=== PATIENT | female | born 2000 | race African-American/Black ===

== ENCOUNTER 2022-01-28 00:11 | Emergency (ER) | payer MEDICAID, SELFPAY ==
[2022-01-28 00:13] VITALS: BP 137/64; PULSE 106; RESP 18; TEMP 36.4; O2SAT 100
[2022-01-28 01:51] LABS: Appearance Urine Clear (Clear); Bilirubin Urine 1+ (Negative); Blood Urine Negative (Negative); Color Urine Yellow (Yellow); Glucose Urine UA Negative (Negative); Ketones Urine Trace mg/dL (Negative); Leukocyte Esterase Ur Negative LEU/UL (Negative); Nitrate Urine Negative (Negative); Protein Urine 1+ mg/dL (Negative); pH Urine 7.5 (5.0-9.0)
[2022-01-28 01:53] LABS: Mucus Urine Rare /lpf; Squamous Epithelial Cell Urine Many /hpf (Few); WBC Urine 0-3 /hpf
[2022-01-28 01:54] LABS: Add Urine Microscopic? YES
--- NOTE | 2022-01-28 02:05 | ED.GENADULT ---
HPI - General Adult General Chief complaint: Unspecified <EDITH Wylie Last Filed: 01/28/22 03:08> Stated complaint: BACK PAIN <EDITH Wylie Last Filed: 01/28/22 03:08> Time Seen by Provider: 01/28/22 01:50 <EDITH Wylie Last Filed: 01/28/22 03:08> Source: patient <EDITH Wylie Last Filed: 01/28/22 03:08> Mode of arrival: ambulatory <EDITH Wylie Last Filed: 01/28/22 03:08> Limitations: no limitations <EDITH Wylie Last Filed: 01/28/22 03:08> History of Present Illness HPI narrative: This is a 21 year old female that presents to the ER for low back pain ongoing over the last couple of hours. No known injury or trauma. The pain is worse with movement and relieved with rest. She has not taken anything for pain. She bent forward while on the toilet tonight and the pain worsened which prompted her to be seen. Denies fever, abdominal pain, vomiting, dysuria or hematuria. <EDITH Wylie Last Filed: 01/28/22 03:08> Related Data Allergies/adverse reactions: Allergies Allergy/AdvReac Type Severity Reaction Status Date / Time No Known Allergies Allergy Verified 01/28/22 02:05 <EDITH Wylie Last Filed: 01/28/22 03:08> Review of Systems Review of Systems: CONSTITUTIONAL: Denies fever EYES: Denies visual changes ENT: Denies congestion, sore throat CARDIOVASCULAR: Denies edema. RESPIRATORY: Denies dyspnea. GASTROINTESTINAL: Denies abdominal pain, nausea, vomiting GENITOURINARY: Denies dysuria or hematuria. SKIN: Denies rash MUSCULOSKELETAL: Reports back pain, joint pain, and myalgia. NEUROLOGIC: Denies numbness, or weakness. <EDITH Wylie Last Filed: 01/28/22 03:08> All systems reviewed & are unremarkable except as noted in HPI and below <Yuliana Sauceda PA-C - Last Filed: 01/28/22 03:08> [facility] Past Medical History Medical History: Medical History (Updated 01/29/22 @ 00:00 by Lavon [place]) No active medical problems <Yuliana Sauceda PA-C - Last Filed: 01/28/22 03:08> Social History Social History: Social History (Updated 01/28/22 @ 02:08 by Yuliana Sauceda PA-C) Smoking status: Never smoker Substance use: never <Yuliana Sauceda PA-C - Last Filed: 01/28/22 03:08> Exam Narrative: GENERAL: Well-appearing, well-nourished, and in no acute distress. HEAD: Normocephalic, atraumatic. EYES: EOMI. CHEST: Clear to auscultation. No respiratory distress. No wheezes rales or rhonchi HEART: Regular rate and rhythm. No murmur heard. Normal peripheral pulses. EXTREMITIES: Normal range of motion. No edema. Strength equal in bilateral lower extremities (5/5). Normal DP pulses. Normal sensation SKIN: Warm, dry, no rash. NEURO: No focal deficits. Alert and oriented x3. Normal gait PSYCH: Normal mood and affect <Yuliana Sauceda PA-C - Last Filed: 01/28/22 03:08> Course Course Emergency Course: Patient resting comfortably after Tylenol <Yuliana Sauceda PA-C - Last Filed: 01/28/22 03:08> [employer]/PA Physician Supervision For this encounter, I have reviewed the mid-level provider documentation, treatment plan and medical decision making. I have had cyst-bm-dqih time with the patient. Physical exam revealed a well-appearing young female. She has no red flags for serious back pain on history or physical. Patient was treated symptomatically with improvement of her symptoms. . All questions answered. Patient in agreement w/ disposition. Given primary care follow-up. <Jose Elias Benavidez MD - Last Filed: 02/01/22 21:31> Vital Signs Vital signs: Vital Signs Temperature 97.6 F 01/28/22 00:13 Pulse Rate 106 H 01/28/22 00:13 Respiratory Rate 18 01/28/22 00:13 Blood Pressure 137/64 01/28/22 00:13 Pulse Oximetry 100 01/28/22 00:13 Oxygen Delivery Room Air 01/28/22 00:13 Temperature 97.6 F 01/28/22 00:13 Pulse Rate 106 H
[2022-01-28] MEDS: ACETAMINOPHEN 500 MG TABLET 1000 MG PO (02:06)
[2022-01-28 02:12] LABS: Pregnancy On Board Control Positive; Urine Pregnancy Test Negative
--- NOTE | 2022-01-28 02:16 | PC.NURSE ---
in room to give IM injection and pt decided she did not want shot because she does not like shots
[2022-01-28 02:17] LABS: Basophils Absolute Auto 0.1 K/mm3 (0.0-0.1); Basophils Percent Auto 0.5 % (0.2-1.2); Eosinophils Absolute Auto 0.1 K/mm3 (0-0.3); Eosinophils Percent Auto 0.8 % (0-4.4); Hematocrit 39.3 % (37.0-47.0); Immature Granulocyte Absolute 0.03 K/mm3 (0.00-0.031); Immature Granulocyte Percent A 0.3 % (0-0.5); Lymphocytes Absolute Auto 5.83 K/mm3 (0.9-3.2); Lymphocytes Percent Auto 53.1 % (18.3-44.2); Mean Corpuscular HGB Conc 33.1 g/dl (32-36); Mean Corpuscular Volume 87.5 fl (80-100); Mean Platelet Volume 9.4 fl (7.4-10.4); Monocytes Absolute Auto 0.9 K/mm3 (0.1-0.6); Neutrophils Absolute Auto 4.1 K/mm3 (1.3-6.7); Neutrophils Percent Auto 37.3 % (45.5-73.1); Platelet Count Result 399 k/mm3 (150-375); Red Blood Count 4.49 M/mm3 (4.2-5.4)
--- NOTE | 2022-01-28 02:17 | PC.NURSE ---
urine sent to lab before bedside preg done, urine HCG ordered
[2022-01-28 02:24] LABS: Atypical Lymphocytes Present; Platelet Estimate Adequate (Adequate); Schistocytes None Seen (NORMAL)
[2022-01-28 02:41] LABS: Anion Gap 6 mmol/L (8-16); Blood Urea Nitrogen 12 mg/dL (8-21); Calcium 8.6 mg/dL (8.9-10.7); Carbon Dioxide 26 mmol/L (22-30); Chloride 104 mmol/L (98-107); Estimated CRCL calculation 100 ml/min; Estimated Glomerular Filt Rate > 60; Glucose 90 mg/dL (65-110); Sodium 136 mmol/L (134-143)
--- NOTE | 2022-01-28 03:58 | PC.NURSE ---
Engine Boss discharged papers reviewed with patient, patient denies any questions or comments. Patient alert and ambulatory to ED exit.
== END 2022-01-28 03:59 | disposition home or self-care (01) ==
PROVIDERS: Physician Assistant; Emergency Provider Emergency Medicine
DX: M54.50 Low back pain, unspecified (principal)
CPT/HCPCS: 36415; 80048; 81001; 81025; 85025; 99283; A9270

== ENCOUNTER 2023-01-01 14:24 | Emergency (ER) | payer MEDICAID, SELFPAY ==
[2023-01-01 14:26] VITALS: BP 118/58; PULSE 100; RESP 20; TEMP 36.9; O2SAT 99
--- NOTE | 2023-01-01 15:11 | ED.WOUNDLAC ---
HPI - Wound/Laceration General Chief Complaint: Wound/Laceration Stated Complaint: bleeding from wound Time Seen by Provider: 01/01/23 14:40 History of Present Illness HPI narrative: Patient is a 22-year-old female who presents ER with for evaluation of a old pilonidal cyst wound. She had the cyst removed in March 2022 at [facility]. She had prolonged healing time. Last visit was in November of this year. She been doing well. She notes bloody drainage over the last couple of days. No fevers or chills or sweats. No increased pain. No known trauma. Related Data Allergies Allergy/AdvReac Type Severity Reaction Status Date / Time No Known Allergies Allergy Verified 01/01/23 14:29 Review of Systems Constitutional: Constitutional: Denies chills and Denies fever(s) Integumentary/Breasts: Skin/Breast: Denies erythema, Denies rash and Denies skin ulcer Comments: Drainage from buttock wound. PMFSH Past Medical History Medical History (Updated 01/01/23 @ 15:20 by Doc Pennington MD) No active medical problems Surgical History Surgical History (Updated 01/01/23 @ 15:18 by Doc Pennington MD) History of excision of pilonidal cyst Social History Social History (Updated 01/28/22 @ 02:08 by Yuliana Sauceda PA-C) Smoking status: Never smoker Substance use: never Exam Narrative: GENERAL: Well-appearing, well-nourished, and in no acute distress. HEAD: Normocephalic, atraumatic. EXTREMITIES: Normal range of motion. No edema. SKIN: Warm, dry, no rash. 2 mm hole in old pilonidal cyst wound without purulent drainage. NEURO: No focal deficits. Alert and oriented x3. PSYCH: Normal mood and affect. Course Vital Signs Vital signs: Vital Signs Temperature 98.5 F 01/01/23 14:26 Pulse Rate 100 01/01/23 14:26 Respiratory Rate 20 01/01/23 14:26 Blood Pressure 118/58 L 01/01/23 14:26 Pulse Oximetry 99 01/01/23 14:26 Oxygen Delivery Room Air 01/01/23 14:26 Temperature 98.5 F 01/01/23 14:26 Pulse Rate 100 11/12/23 14:26 Respiratory Rate 20 01/01/23 14:26 Blood Pressure 118/58 L 01/01/23 14:26 Pulse Oximetry 99 01/01/23 14:26 Oxygen Delivery Room Air 01/01/23 14:26 Discharge Plan Discharge Clinical Impression: Wound dehiscence Patient Disposition: Home, Self-Care Condition: Stable Instructions: Chronic Wounds (ED) Additional Instructions: Follow-up with your general surgeon about fixing the rest of his chronic wound. Return the ER if you have any pain, you have fever over 100.4 ?F, you have additional concerns. Prescriptions: No Action cyclobenzaprine 10 mg tablet 10 mg PO TID PRN (Reason: muscle spasm) Qty: 14 0RF Follow-up/Referrals: PHYSICIAN NOT ON STAFF,NONSTAFF [Primary Care Provider] -
[2023-01-01 15:37] VITALS: BP 120/80; PULSE 98; RESP 18; TEMP 36.7; O2SAT 100
== END 2023-01-01 15:39 | disposition home or self-care (01) ==
PROVIDERS: Emergency Provider Emergency Medicine
DX: T81.31XA Disruption of external operation (surgical) wound, not elsewhere classified, initial encounter (principal); Y84.8 Other medical procedures as the cause of abnormal reaction of the patient, or of later complication, without mention of misadventure at the time of the procedure
CPT/HCPCS: 99281

== ENCOUNTER 2023-05-15 23:18 | Emergency (ER) | payer MEDICAID, SELFPAY ==
[2023-05-15 23:20] VITALS: BP 121/74; PULSE 102; RESP 20; TEMP 36.4; O2SAT 100
--- NOTE | 2023-05-16 02:20 | ED.EYEPROB ---
HPI - Eye Problem General Chief complaint: Eye Problems Stated complaint: eye complaint Time Seen by Provider: 05/16/23 02:12 History of Present Illness HPI Narrative: Patient is a 22-year-old female who presents to the emergency department this morning complaining of bilateral eye pain. Patient states that Monday of last week she went to an urgent care for these symptoms after using a new eye lash clue. She was informed that she has allergic conjunctivitis and provided with an antihistamine eyedrops which patient has been using. Patient admits that her symptoms have not gotten worse but they also have not gotten better. This morning she woke up and noted yellow crusting around both eyes and is now concerned that her conjunctivitis has turn into a bacterial conjunctivitis due to her rubbing her eyes frequently due to itching sensation. Patient wears glasses but denies any recent contact lens use. She is currently denying any additional symptoms at this time. There are no other modifying, alleviating, or precipitating factors. Related Data Allergies Allergy/AdvReac Type Severity Reaction Status Date / Time No Known Allergies Allergy Verified 01/01/23 14:29 Review of Systems Review of Systems: All systems are reviewed and are negative unless stated otherwise in the HPI. [facility] Past Medical History Medical History No active medical problems Surgical History Surgical History History of excision of pilonidal cyst Social History Social History Smoking status: Never smoker Substance use: never Exam Narrative: General: Alert, awake, afebrile, in no acute distress. HEENT: PERRL, no rhinorrhea, no post nasal drip, oropharynx clear. Eye: bilateral conjunctival injection, fluorescent eye staining revealed no corneal abrasions, no dendritic lesions, no foreign bodies with lid eversion, no pain with extraocular movements, no chemosis, no proptosis, no sidel sign. Neck: Trachea midline, no JVD, no lymphadenopathy. Cardiovascular: Regular rate and rhythm, no murmurs, rubs or gallops, no peripheral edema. Respiratory: Clear to auscultation bilaterally, no tachypnea, no wheezing, no rhonchi, no rubs, no respiratory distress. Abdomen: Soft, nontender, nondistended, no rebound, no guarding, no peritoneal signs. Musculoskeletal: No joint swelling or deformity, normal muscle tone. Skin: No rashes or petechia, no signs of infection. Psychiatric: Alert and oriented, normal behavior and judgment for situation. Neurological: Alert and oriented to person, place, and time. Follows all commands. No focal deficits, speech is clear and fluent. Course Vital Signs Vital signs: Vital Signs Temperature 97.5 F L 05/15/23 23:20 Pulse Rate 102 H 05/15/23 23:20 Respiratory Rate 20 05/15/23 23:20 Blood Pressure 121/74 05/15/23 23:20 Pulse Oximetry 100 05/15/23 23:20 Oxygen Delivery Room Air 05/15/23 23:20 Temperature 97.5 F L 05/15/23 23:20 Pulse Rate 102 H 05/15/23 23:20 Respiratory Rate 20 05/15/23 23:20 Blood Pressure 121/74 05/15/23 23:20 Pulse Oximetry 100 05/15/23 23:20 Oxygen Delivery Room Air 05/15/23 23:20 MDM - Eye Problem MDM Narrative Medical decision making narrative: The patient was evaluated by myself in the emergency department. History is obtained from patient who is an independent historian and physical exam was performed. External medical records were reviewed at this time. Differential diagnosis considerations include corneal abrasions, allergic versus bacterial conjunctivitis. Comorbidities impacting this visit include recent new eyelash glue use. I have evaluated and discussed social determinants of health with the patient that could potentially impact subsequent diagnosis and treatment plans.
--- NOTE | 2023-05-16 02:50 | PC.NURSE ---
Dr. Stacey GONZALEZ this RN to pull tetracaine eyedrops and fluorescein strips for pt.
[2023-05-16] MEDS: TETRACAINE HCL 0.5% OPHTH SOLN 4 ML BTL 1 DROP EACH EYE (03:00)
[2023-05-16] MEDS: OFLOXACIN 0.3% OPHTH SOLN 5 ML BTL 1 DROP EACH EYE (03:00)
[2023-05-16] MEDS: FLUORESCEIN SOD 1 MG/STRIP EACH EYE (03:00)
[2023-05-16 03:10] VITALS: BP 112/78; PULSE 70; RESP 16; O2SAT 100
== END 2023-05-16 03:12 | disposition home or self-care (01) ==
PROVIDERS: Emergency Provider Emergency Medicine
DX: H10.89 Other conjunctivitis (principal)
CPT/HCPCS: 99283; A9270